=== PATIENT | female | born 1985 | race Caucasian/White ===

== ENCOUNTER 2017-06-14 09:48 | Emergency (ER) | payer OTHER ==
[~2017-06-14] VITALS: Ht 170.2 cm; Wt 82.7 kg
[2017-06-14 10:38] LABS: HEMATOCRIT 42.4 % (34.6-47.8); HEMOGLOBIN 14.5 g/dL (11.7-16.4); WHITE BLOOD COUNT 7.6 x10^3/uL (3.4-10)
[2017-06-14 10:50] LABS: BLOOD UREA NITROGEN 14 mg/dL (7-18)
[2017-06-14 10:54] LABS: ASPARTATE AMINO TRANSFERASE 25 U/L (15-37)
[2017-06-14 10:55] LABS: IS PT STATUS REG ER OR PRE ER? YES
[2017-06-14 11:09] VITALS: BP 127/86
== END 2017-06-14 11:48 | disposition home or self-care (01) ==
LOC: ED 10:42
DX: R51 Headache (principal); R42 Dizziness and giddiness
CPT/HCPCS: 36415; 71010; 80053; 83880; 84484; 85025; 93005; 99285

== ENCOUNTER → 2017-07-13 | Outpatient (CLI) | payer OTHER ==
[2017-07-13 12:08] LABS: DAU SCREEN DISCLAIMER
[2017-07-13 13:12] LABS: HIV 1&2 ANTIBODY SCREEN Nonreactive (Nonreactive); HIV-1 p24 ANTIGEN Nonreactive (Nonreactive)
[2017-07-14 07:07] LABS: TOXOPLASMA GONDII IGG <3.0 IU/mL (0.0-7.1); TOXOPLASMA GONDII IGM <3.0 AU/mL (0.0-7.9)
== END | disposition home or self-care (01) ==
LOC: LAB 11:58
PROVIDERS: ATTEND Nurse Practitioner Family
DX: Z33.3 Pregnant state, gestational carrier (principal)
CPT/HCPCS: 80074; 80307; 80323; 82306; 84443; 86644; 86645; 86703; 86762; 86777; 86780; 86787; 86790; 86850; 86900; 87109; 87899; G0435; G0479; G0480

== ENCOUNTER 2020-04-30 10:00 | Outpatient (CLI) | payer OTHER ==
[~2020-04-30] VITALS: Ht 167.6 cm; Wt 95.0 kg
[2020-04-30 10:17] VITALS: BP 123/79
[2020-04-30] MEDS ORDERED: NIFE30TA13 PO (10:34)
[2020-04-30] MEDS ORDERED: VALA500T4 PO (10:34)
[2020-04-30] MEDS ORDERED: VENL37.52 PO (10:34)
== END 2020-04-30 11:23 | disposition home or self-care (01) ==
LOC: LDOP 10:00
PROVIDERS: ATTEND Obstetrics & Gynecology
DX: Z34.82 Encounter for supervision of other normal pregnancy, second trimester (principal); Z20.828 Contact with and (suspected) exposure to other viral communicable diseases
CPT/HCPCS: 59025; 87635

== ENCOUNTER 2020-05-04 08:12 | Outpatient (CLI) | payer OTHER ==
[~2020-05-04] VITALS: Ht 170.2 cm; Wt 95.5 kg
[~2020-05-04 08:12] MED LIST: NIFE30TA13 PO; VALA500T4 PO; VENL37.52 PO
[2020-05-04 08:21] VITALS: BP 130/75
[2020-05-04] MEDS ORDERED: ASPI-515 PO (08:31)
== END 2020-05-04 12:45 | disposition home or self-care (01) ==
LOC: LDOP 08:12
PROVIDERS: ATTEND Obstetrics & Gynecology
DX: O16.3 Unspecified maternal hypertension, third trimester (principal); Z3A.37 37 weeks gestation of pregnancy
CPT/HCPCS: 59025; 76815; 76819

== ENCOUNTER 2020-05-06 10:13 | Outpatient (CLI) | payer OTHER ==
[~2020-05-06 10:13] MED LIST changes: +ASPI-515 PO
== END 2020-05-06 23:59 | disposition home or self-care (01) ==
LOC: STAR 10:13
PROVIDERS: ATTEND Obstetrics & Gynecology
DX: Z01.812 Encounter for preprocedural laboratory examination (principal); Z20.828 Contact with and (suspected) exposure to other viral communicable diseases
CPT/HCPCS: 36415; 87635

== ENCOUNTER 2020-05-07 07:40 | Outpatient (CLI) | payer OTHER ==
[~2020-05-07] VITALS: Ht 170.2 cm; Wt 95.0 kg
[2020-05-07 07:42] VITALS: BP 119/79
== END 2020-05-07 08:09 | disposition home or self-care (01) ==
LOC: LDOP 07:40
PROVIDERS: ATTEND Obstetrics & Gynecology
DX: O09.93 Supervision of high risk pregnancy, unspecified, third trimester (principal); O36.8393 Maternal care for abnormalities of the fetal heart rate or rhythm, unspecified trimester, fetus 3; Z3A.37 37 weeks gestation of pregnancy
CPT/HCPCS: 59025

== ENCOUNTER 2020-05-13 02:04 | Inpatient (IN) | payer OTHER ==
[~2020-05-13] VITALS: Ht 170.2 cm; Wt 96.2 kg
[2020-05-13 09:30] VITALS: BP 132/89
[2020-05-13] MEDS ORDERED: MISOPROSTOL 200 MCG TABLET ONE ×2 (09:30→09:42)
[2020-05-13] MEDS ORDERED: OXYTOCIN 30U/ 0.9% NaCL 500ML 0 ML ONE (09:30)
[2020-05-13] MEDS ORDERED: NEWBORN KIT ONE (09:30)
[2020-05-13] MEDS ORDERED: LIDOCAINE 1%, 20ML ONE ×2 (09:30→09:42)
[2020-05-13] MEDS: LACTATED RINGERS 1,000 ML IV SCH ×4 (09:40→19:06)
[2020-05-13] MEDS ORDERED: OXYTOCIN 30U/ 0.9% NaCL 500ML 500 ML ONE (09:41)
[2020-05-13] MEDS ORDERED: TERBUTALINE 1 MG/ML, 1ML SQ PRN (10:00)
[2020-05-13] MEDS ORDERED: PENICILLIN GK 5,000,000 UNITS in DEXTROSE 5% 100 ML IVPB ONE (10:00)
[2020-05-13] MEDS ORDERED: OXYTOCIN 30U/ 0.9% NaCL 500ML 500 ML IV ONE (10:00)
[2020-05-13] MEDS ORDERED: TERBUTALINE 1 MG/ML, 1ML IVPush PRN (10:00)
[2020-05-13] MEDS ORDERED: OXYTOCIN 30U/ 0.9% NaCL 500ML 500 ML IV PRN (10:00)
[2020-05-13] MEDS ORDERED: FENTANYL PF 100 MCG/2ML IVPush PRN (10:00)
[2020-05-13] MEDS ORDERED: FENTANYL PF 100 MCG/2ML IV PRN (10:00)
[2020-05-13 10:13] LABS: BASOPHILS % (AUTO) 0 % (0-1); EOSINOPHILS % (AUTO) 2 % (1-7); LYMPHOCYTES % (AUTO) 20 % (22-44); MD NO; MEAN CORPUSCULAR HGB CONC 33.4 g/dL (32.4-35.8); MEAN PLATELET VOLUME 9.9 fL (7.4-10.4); MONOCYTES % (AUTO) 10 % (2-9); NEUTROPHILS % (AUTO) 68 % (42-75); PLATELET COUNT 235 x10^3/uL (130-400); RED BLOOD COUNT 4.02 x10^6/uL (3.82-5.3); RED CELL DISTRIBUTION WIDTH 12.7 % (9.6-15.2)
[2020-05-13] MEDS: PENICILLIN GK 2,500,000 UNITS in DEXTROSE 5% 100 ML IVPB SCH ×3 (13:48→21:37)
[2020-05-13] MEDS ORDERED: FENTANYL/BUPIV./NS/PF 250 ML EPIDCONT ONE (19:12)
[2020-05-13] MEDS ORDERED: BUPIVACAINE 0.25% ONE ×2 (19:12→20:06)
[2020-05-13] MEDS ORDERED: FENTANYL/BUPIV./NS/PF 250 ML EPIDCONT SCH (20:00)
[2020-05-13] MEDS ORDERED: LACTATED RINGERS 1,000 ML IV SCH (20:00)
[2020-05-13] MEDS ORDERED: LACTATED RINGERS 1,000 ML IVBOLUS PRN (20:00)
[2020-05-13] MEDS ORDERED: EPHEDRINE 50 MG/ML, 1ML IVPush PRN (20:00)
[2020-05-14] MEDS ORDERED: OXYTOCIN 30U/ 0.9% NaCL 500ML 500 ML ONE (00:40)
[2020-05-14] MEDS ORDERED: IBUPROFEN 600 MG TABLET ONE (00:40)
[2020-05-14] MEDS: OXYTOCIN 30U/ 0.9% NaCL 500ML 500 ML IV SCH ×3 (00:44→21:00)
[2020-05-14] MEDS: IBUPROFEN 600 MG TABLET PO PRN ×4 (00:44→22:24)
[2020-05-14] MEDS ORDERED: ONDANSETRON 2MG/ML, 2ML IV PRN (01:00)
[2020-05-14] MEDS ORDERED: CARBOPROST TROMETHAMINE 250 MCG/ML, 1ML IM PRN (01:00)
[2020-05-14] MEDS ORDERED: HYDROcodone/APAP 5/325 TABLET PO PRN (01:00)
[2020-05-14] MEDS ORDERED: MISOPROSTOL 200 MCG TABLET PR PRN (01:00)
[2020-05-14] MEDS ORDERED: ACETAMINOPHEN 325 MG TABLET PO PRN (01:00)
[2020-05-14] MEDS ORDERED: METHYLERGONOVINE 0.2 MG/ML IM PRN (01:00)
[2020-05-14] MEDS ORDERED: OXYTOCIN 10 UNITS/ML, 1ML IM PRN (01:00)
[2020-05-14] MEDS ORDERED: DOCUSATE 100 MG CAPSULE PO PRN (01:00)
[2020-05-14] MEDS ORDERED: SIMETHICONE 80 MG CHEW TAB PO PRN (01:00)
[2020-05-14 03:20] VITALS: BP 130/81
[2020-05-14 07:20] VITALS: BP 125/83
[2020-05-14 09:04] LABS: MEAN CORPUSCULAR HEMOGLOBIN 28.7 pg (27.0-34.8); MEAN PLATELET VOLUME 10.7 fL (7.4-10.4); PLATELET COUNT 243 x10^3/uL (130-400); RED BLOOD COUNT 4.17 x10^6/uL (3.82-5.3); RED CELL DISTRIBUTION WIDTH 12.5 % (9.6-15.2)
[2020-05-14] MEDS: PRENATAL VIT/IRON/FA 1 EACH TABLET PO SCH (09:24)
[2020-05-14 09:40] LABS: MD YES
[2020-05-14 09:48] LABS: EOS#(MANUAL) 0.79 x10^3/uL (0.0-0.4); EOS% (MANUAL) 4 % (1-7); LYMPH#(MANUAL) 2.76 x10^3/uL (1-3.4); LYMPHS% (MANUAL) 14 % (22-44); MONOS#(MANUAL) 0.99 x10^3/uL (0.3-2.7); MONOS% (MANUAL) 5 % (2-9); SEG#(MANUAL) 15.17 x10^3/uL (1.8-6.8); SEGS% (MANUAL) 77 % (42-75)
[2020-05-14 09:49] LABS: <RBC MORPHOLOGY> NORMAL
[2020-05-14 09:50] LABS: <PLATELET ESTIMATE> ADEQUATE; GIANT PLATELETS 1+; LARGE PLATELETS 2+
[2020-05-14 12:08] VITALS: BP 127/84
[2020-05-14 16:05] VITALS: BP 119/81
[2020-05-14 20:15] VITALS: BP 132/90
[2020-05-14] MEDS: HYDROcodone/APAP 5/325 TABLET PO PRN (22:00)
[2020-05-15 00:54] VITALS: BP 137/92
[2020-05-15] MEDS: OXYTOCIN 30U/ 0.9% NaCL 500ML 500 ML IV SCH (04:08)
[2020-05-15 07:30] VITALS: BP 116/79
[2020-05-15] MEDS: PRENATAL VIT/IRON/FA 1 EACH TABLET PO SCH (07:32)
[2020-05-15] MEDS: HYDROcodone/APAP 5/325 TABLET PO PRN (09:13)
[2020-05-15] MEDS: IBUPROFEN 600 MG TABLET PO PRN (09:13)
[2020-05-15] MEDS ORDERED: DOCU-131 PO (13:09)
[2020-05-15] MEDS ORDERED: IBUP-1222 PO (13:10)
[2020-05-15] MEDS ORDERED: HYDR-3240 PO (13:13)
== END 2020-05-15 14:00 | disposition home or self-care (01) | DRG 807 ==
LOC: LDIP 09:12 → 2NE 05-14 01:52 → 2NW 05-14 06:20
PROVIDERS: ADMIT Obstetrics & Gynecology; ATTEND Obstetrics & Gynecology
PROC: 10E0XZZ Delivery of Products of Conception, External Approach (ICD-10-PCS; principal; 2020-05-14)
PROC: 0KQM0ZZ Repair Perineum Muscle, Open Approach (ICD-10-PCS; 2020-05-14)
PROC: 10907ZC Drainage of Amniotic Fluid, Therapeutic from Products of Conception, Via Natural or Artificial Opening (ICD-10-PCS; 2020-05-14)
PROC: 0UQMXZZ Repair Vulva, External Approach (ICD-10-PCS; 2020-05-14)
PROC: 3E0R3BZ Introduction of Anesthetic Agent into Spinal Canal, Percutaneous Approach (ICD-10-PCS; 2020-05-14)
PROC: 00HU33Z Insertion of Infusion Device into Spinal Canal, Percutaneous Approach (ICD-10-PCS; 2020-05-14)
PROC: 3E033VJ Introduction of Other Hormone into Peripheral Vein, Percutaneous Approach (ICD-10-PCS; 2020-05-14)
DX: O99.824 Streptococcus B carrier state complicating childbirth (principal); Z37.0 Single live birth; O10.92 Unspecified pre-existing hypertension complicating childbirth; Z20.828 Contact with and (suspected) exposure to other viral communicable diseases; Z3A.38 38 weeks gestation of pregnancy; F32.9 Major depressive disorder, single episode, unspecified; F41.9 Anxiety disorder, unspecified; O77.0 Labor and delivery complicated by meconium in amniotic fluid; O69.81X0 Labor and delivery complicated by cord around neck, without compression, not applicable or unspecified; O99.344 Other mental disorders complicating childbirth; O70.1 Second degree perineal laceration during delivery; O71.82 Other specified trauma to perineum and vulva
CPT/HCPCS: 36415; 85025; 86592; 86850; 86900; G0378; J2540; J2590; J7120

== ENCOUNTER 2020-10-22 16:42 | Emergency (ER) | payer OTHER ==
[~2020-10-22] VITALS: Ht 170.2 cm; Wt 96.3 kg
[~2020-10-22 16:42] MED LIST changes: -ASPI-515 PO; +ASPI-963 PO; +DOCU-131 PO; +HYDR-1067 PO; +IBUP-1222 PO
--- NOTE | 2020-10-22 17:02 | NUR ---
PT AMBUATORY TO ROOM 18 W/ C/O BRIGHT RED BLEEDING X 2 WHEN WIPING YESTERDAY. PT STATES SHE IS 7 WEEKS . LMP 08/31/2020. PT DENIES NAY CRAMPING/PAIN. A3. PT RESTING ON GURNEY. NADN. MONITORS APPLIED.
--- NOTE | 2020-10-22 17:09 | NUR ---
UA COLLECTED, LABELED, AND SENT TO LAB.
[2020-10-22 17:47] LABS: BASOPHILS % (AUTO) 1 % (0-1); EOSINOPHILS % (AUTO) 2 % (1-7); LYMPHOCYTES % (AUTO) 26 % (22-44); MEAN CORPUSCULAR HEMOGLOBIN 29.3 pg (27.0-34.8); MEAN CORPUSCULAR HGB CONC 33.7 g/dL (32.4-35.8); MEAN PLATELET VOLUME 8.5 fL (7.4-10.4); MONOCYTES % (AUTO) 9 % (2-9); NEUTROPHILS % (AUTO) 62 % (42-75); PLATELET COUNT 352 x10^3/uL (130-400); RED BLOOD COUNT 4.31 x10^6/uL (3.82-5.3); RED CELL DISTRIBUTION WIDTH 13.6 % (9.6-15.2)
[2020-10-22 17:48] LABS: MD NO
[2020-10-22 18:01] LABS: MICROSCOPIC INDICATED
[2020-10-22 18:05] LABS: ALBUMIN 3.5 g/dL (3.4-5.0); ANION GAP 6 mmol/L (5-15); CALCIUM 8.4 mg/dL (8.5-10.1); CHLORIDE 106 mmol/L (98-107); CREATININE 0.66 mg/dL (0.55-1.02)
[2020-10-22 19:03] VITALS: BP 150/88
--- NOTE | 2020-10-22 19:04 | NUR ---
PT RESTING ON GURNEY. NADN. BENNETT.
== END 2020-10-22 19:12 | disposition home or self-care (01) ==
LOC: ED 18:44
DX: O20.0 Threatened abortion (principal); Z3A.01 Less than 8 weeks gestation of pregnancy
CPT/HCPCS: 36415; 76801; 80048; 81001; 82040; 84702; 85025; 86901; 87086; 99284